=== PATIENT | female | born 1970 | race Caucasian/White ===

== ENCOUNTER → 2021-06-29 14:00 | Outpatient (CLI) | payer OTHER, SELFPAY ==
--- NOTE | 2021-06-29 | IMM_PTH ---
PATIENT: WILLIE GRECO LOC: [facility] U#:[id number] AGE/SX: 54/F ROOM: RE06/29/[address]: Dr. Mehran Mocteuzma MD : 1970 BED: DIS: SPEC #: [id number] RECD: 07/01/21 12:02 STATUS: CLARK REQ #: [id number] TAJ: 06/29/21 00:[address]: Mehran Moctezuma DEPT: IMMUNOHISTOCHEMISTRY RECD BY: Cecilia Brannon Tissues: A - Left breast, NOS B - Left breast, NOS Procedures: CALPONIN-1 (add) CK5-6 (add) CK8 (add) MUNOZ-2 (add) E-CAD (add) HER2 YINKA (add) KI-67 (add) MAMM (add) P53 (add) IN (add) GATA3 (add) P40 (add) ER (initial) PHYSICIAN & INSTITUTION [place] [id number] SPECIMEN INFORMATION: Tissue Source: A ? Left breast mass, B ? Skin of left breast Clinical Info: Left breast mass and skin changes Specimen Number: [id number] A & B CPT code: 46597 x2, 30813 x9, 25278 x5 METHODOLOGY: Deparaffinized sections of prefer/formalin-fixed tissue or PAP/DQ stained slides are incubated with monoclonal/polyclonal antibodies/oligonucleotide probes. Localization is made via biotin free immunoperoxidase method. Appropriate controls are performed and reacted as expected. Results on target cell population are indicated in the following table: RESULTS: ANTIBODY / CLONE RESULT Block A P53 (DO-7) positive, 5% Ki-67 (30-9) positive, 85% CK8 (72ileuR64) positive CK5-6 (D5 & 1684) negative Calponin-1 (GI057K) negative P40 (BC28) negative E-Cad (ECH-6) positive MUNOZ-2 (SP21) positive MORPHOMETRIC ANALYSIS ER (clone 6F11) >95%, strong IN (clone 16/1E2) >95%, strong Her-2Neu (clone CB11) 0 Block B GATA3 (L50-823) positive Mammaglobin (31A5) negative CK8 (26elqfY14) positive ER (6F11) positive IN (1E2) positive The prognostic test for HER2 is performed on formalin-fixed paraffin embedded tissue. A 3+ (positive) staining pattern is defined as intense, homogeneous, complete, circumferential membranous staining in >10% of contiguous tumor cells. A similar weak (2+) staining pattern is interpreted as equivocal. NEO follow-up testing is recommended for all equivocal cases. Positivity/negativity for ER/IN is reported if > or < 1% of the tumor cells are immuno- reactive, respectively. The ASCO/CAP criteria is used for scoring. Reference: Journal of Clinical Oncology, 2013; 31:0896-4933 & 2010; 16:9090-5755. Duration of fixation: 29.5 Hrs; Sample Adequate: Yes. These assays have not been validated on decalcified tissues. Results should be interpreted with caution given the likelihood of false negativity on decalcified specimens. These tests were developed and their performance characteristics determined by [facility]. They may not have been cleared or approved by the U.S. Food and Drug Administration. The FDA has determined that such clearance or approval is not necessary. The above immunohistochemical/dualISH markers are ordered and reviewed by the Pathologist. INTERPRETATION: A. Left breast mass, core biopsy: Invasive ductal (mucinous/colloid) carcinoma, grade 1 Positive for estrogen receptors (favorable prognostic indicator). Positive for progesterone receptors (favorable prognostic indicator). Negative for overexpression of GCF3vdy. B. Skin of left breast, biopsy: Invasive ductal carcinoma. AM:garret 07/02/21
--- NOTE | 2021-06-29 14:00 | BRBX_PTH ---
PATIENT: WILLIE GRECO [facility] U#:[id number] AGE/SX: 54/F ROOM: RE06/29/[address]: Dr. Mehran Moctezuma MD : 1970 BED: DIS: SPEC #: [id number] RECD: 06/29/21 16:28 STATUS: CLARK ELBERT #: [id number] TAJ: 06/29/21 14:[address]: Mehran Moctezuma DEPT: SURGICAL PATHOLOGY RECD BY: Nel Coronado Tissues: A - Left breast, NOS B - Left breast, NOS Procedures: Surgery Specimen Level IV HEADER OPERATION: Left breast core and punch biopsy PRE-OP DIAGNOSIS: Left breast mass and skin changes TISSUE SUBMITTED: A ? Left breast core tissue, B ? Left breast skin MICROSCOPIC DIAGNOSIS A. Left breast mass, core biopsy: Mucinous (colloid) breast carcinoma. Maximal length ? 12 millimeters Nuclear grade - 1 See comment. B. Skin of left breast, biopsy: Invasive adenocarcinoma of deep tissue. See comment. AM:garret 07/01/2021 COMMENT A. Immunohistochemistry ([id number]) supports the above diagnosis. B. Immunohistochemistry ([id number]) is consistent with a breast primary. The carcinoma is noted in the deep portion of this biopsy and does not represent epidermal or dermal by carcinoma. Clinical correlation is suggested. Case has been reviewed in consultation with Dr. Reed who concurs with the above diagnosis. IDC:SJ MICROSCOPIC DESCRIPTION Slides are reviewed. GROSS DESCRIPTION A - Received in fixative is one container labeled with the patient's name and designated left breast core biopsy. The specimen consists of multiple elongated fragments of dobson-yellow fibroadipose tissue that in aggregate measure 2.5 x 1 x 0.1 cm. The entire specimen is submitted in one cassette. B - Received in fixative is one container labeled with the patient's name and designated left breast skin biopsy. The specimen consists of two punch biopsies of dobson-white skin measuring 0.3 cm in length and 0.3 cm in diameter and 0.3 cm in length and 0.5 cm in diameter. The entire specimen is submitted in one cassette. / SJ:rg 06/30/21 TC:0 [facility]: [id number] x2 ADDENDUM ADDENDUM ADDENDUM ADDENDUM ADDENDUM ADDENDUM ADDENDUM ADDENDUM ADDENDUM ADDENDUM ADDENDUM ADDENDUM ADDENDUM ADDENDUM ADDENDUM ADDENDUM ADDENDUM ADDENDUM ADDENDUM ADDENDUM ADDENDUM ADDENDUM 11/11/2024 13:22 ADDENDUM 11/11/2024 13:22 ADDENDUM 11/11/2024 13:22 ADDENDUM 11/11/2024 13:22 ADDENDUM 11/11/2024 13:22 This addendum is added to incorporate an outside pathology consultation report. The case was examined at [facility] (#[id number]) and the following diagnosis was rendered. Biomarker Findings HRD signature - HRDsig Negative Microsatellite status - MS-Stable Tumor Mutational [place] - 1 Muts/Mb Genomic Findings For a complete list of the genes assayed, please refer to the appendix [id number] 6 Disease relevant genes with no reportable alterations: AKT1, BRCA1, BRCA2, ERBB2, ESR1, PTEN Please see complete above mentioned consultation report in EMR
[2021-06-29 14:25] VITALS: BMI 29.5
== END ==
PROVIDERS: Referring Provider Surgery; Visit Provider Surgery
DX: N63.20 Unspecified lump in the left breast, unspecified quadrant (principal)
CPT/HCPCS: 88305; 88341; 88342

== ENCOUNTER → 2021-07-16 16:22 | Outpatient (CLI) | payer SELFPAY, OTHER ==
--- NOTE | 2021-07-16 16:29 | CT_ITS ---
INDICATION: STAGING BREAST CANCER EXAMINATION: CT CHEST, ABDOMEN AND PELVIS WITH CONTRAST - CT Chest Abdomen And Pelvis W/ Contrast Injection TECHNIQUE: Helically acquired images were obtained of the chest, abdomen, and pelvis following IV contrast. CTA protocol with 3D reformats were performed. A radiation dose optimization technique was used for this scan. IV Contrast dosage and agent: 100 mL of ISOVUE-370 Oral contrast: None. COMPARISON: None. FINDINGS: ----Chest: LUNGS, PLEURA AND LARGE AIRWAYS: Moderate size right pleural effusion as outlined by multiple enhancing pleural-based nodules right lung. Several scattered pleural-based nodules in the right upper lobe and left upper lobe. Pleural-based nodules and right left major fissures. No pneumothorax. THYROID: No thyroid lesions. HEART AND PERICARDIUM: Heart size is normal. No pericardial effusion. VESSELS: Thoracic aorta is not dilated. No aortic dissection. No obvious central pulmonary embolism although this study was not performed with the pulmonary embolism protocol. MEDIASTINUM AND SEN: Significant mediastinal and hilar lymphadenopathy. 4.5 x 6.3 cm subcarinal lymph node, 3 cm left inferior hilar lymph node and 2 cm more superior left hilar lymph node. Multiple large right hilar lymph nodes and aorto pulmonary window lymph nodes. Esophagus is unremarkable. No hiatal hernia. BONES: No suspicious lytic or blastic abnormality. Large Schmorl''s node superior endplate of T9 vertebral body. Roughly 9.4 x 5.6 cm left breast enhancing, heterogeneous mass involves the skin, appears to be exophytic and is associated with several satellite nodules and several enlarged, highly suspicious left axillary lymph nodes. ----Abdomen/Pelvis: LIVER: Homogeneous. No focal mass. GALLBLADDER AND BILIARY TREE: No calcified gallstones. No gallbladder distension or wall edema. No intra- or extrahepatic biliary ductal dilation. PANCREAS: No focal cystic or solid mass. SPLEEN: Normal size without focal cystic or solid mass. ADRENAL GLANDS: Normal right adrenal gland. 2.4 x 1.9 cm left adrenal enhancing nodule. KIDNEYS AND URETERS: Normal right kidney. Large cystic structure filling the right renal hilum, roughly 10.8 x 10.7 cm associated with severe cortical thinning and enlargement left kidney, 16 cm in craniocaudal dimension suspicious for pelvic ureteric junction obstruction or possible congenital megacalycosis. CT urogram would be needed for definitive evaluation. Ureters are not clearly visible on this exam. PERITONEUM: Subdiaphragmatic lymph nodes in the upper abdomen, anterior to the aorta largest of which measures 2.5 x 2.1 cm. No free fluid. Metallic clip midabdomen and metallic clip in the left adnexal region suggesting clips for sterilization procedure with displaced right clip. BOWEL: No evidence of acute appendicitis. No stomach or bowel distension. No focal inflammatory change. LYMPH NODES: Aside from the upper abdominal periaortic lymph nodes, and there are no other enlarged mesenteric or retroperitoneal lymph nodes. VESSELS: Aorta is non-dilated. URINARY BLADDER: Mostly collapsed; limited evaluation. REPRODUCTIVE ORGANS: Highly suspicious enhancing mass roughly 4 cm, right ovary may represent metastatic disease. ABDOMINAL WALL: No discrete abdominal or pelvic wall hernia. BONES: Single suspicious lytic lesion involving L5 suspicious for metastatic disease Asymmetric, right sided sclerosis iliac side of the sacroiliac joint with minimal sclerosis sacral side inferior sacroiliac joint. There is transitional anatomy with sacralization of L5 showing pseudoarticulation of widened left L5 transverse process with left sacral base. Rudimentary ribs are also present at L1. CT/CT Chest, Abd, Pel w/Contrast IMPRESSION: 1. Large left breast mass with satellite breast lesions left breast, left axillary lymphadenopathy, extensive mediastinal lymphadenopathy, right pleural effusion and right and left pleural-based nodules, upper abdominal lymphadenopathy, left adrenal nodule, right ovarian enhancing mass and lytic lesion L5 vertebral body all suspicious for metastatic disease. No liver lesion. 2. Enlarged left kidney with large hilar cystic mass resulting in severe cortical thinning suggesting pelviureteric junction obstruction or possible congenital megacalycosis. CT Urogram would be helpful for diagnosis if clinically indicated. Electronically Signed: Mehran Mckenzie DO at 0:02 EDT Tel , Service support ,
[2021-07-16 16:41] LABS: CREATININE FINGERSTICK 0.9 mg/dL (0.55-1.02); EGFR FINGERSTICK > 60.0000 mL/min (>60)
== END ==
PROVIDERS: Referring Provider Internal Medicine Medical Oncology; Visit Provider Internal Medicine Medical Oncology
DX: C50.912 Malignant neoplasm of unspecified site of left female breast (principal)
CPT/HCPCS: 71260; 74177; Q9967